=== PATIENT | female | born 1990 | race Caucasian/White ===

== ENCOUNTER 2016-11-19 06:17 | Emergency (ER) | payer OTHER ==
[2016-11-19 06:37] VITALS: BMI 26.4
[2016-11-19] MEDS ORDERED: PANTOPRAZOLE SODIUM 40 MG in SODIUM CHLORIDE 100 ML IVPB ONE (06:48)
[2016-11-19] MEDS ORDERED: SODIUM CHLORIDE 1,000 ML IV STA (06:48)
[2016-11-19] MEDS ORDERED: ONDANSETRON 4 MG/2 ML VIAL IVPUSH ONE (06:48)
[2016-11-19] MEDS ORDERED: ONDANSETRON 4 MG/2 ML VIAL ONE (07:00)
[2016-11-19] MEDS ORDERED: PANTOPRAZOLE SODIUM 100 ML IVPB ONE (07:00)
--- NOTE | 2016-11-19 07:07 | PDOC ---
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 Patient states she is trying to lose weight and drank herbal life tea prior to symptoms onset. Associated dizziness, chest pressure, chest pressure. LNMP: 11-18-16. Patient denies abd pain, diff breathing, fever, rash, hematuria, rectal bleeding, back pain, or any other complaints at this time. Timing/Duration: reports: getting worse Past History - Travel Traveled outside of the country in the last 30 days: No Close contact w/someone who was outside of country & ill: No - Past Medical History Allergies/Adverse Reactions: Allergies Allergy/AdvReac Type Severity Reaction Status Date / Time No Known Allergies Allergy Verified 11/19/16 06:37 Home Medications: Ambulatory Orders Ondansetron HCl [Zofran] 4 mg PO TID PRN #12 tablet 11/19/16 Other medical history: Pt denies - Immunization History Immunization Up to Date: Yes - Psycho/Social/Smoking Cessation Hx Suicidal Ideation: No Smoking History: Never smoked Have you smoked in the past 12 months: No Hx Alcohol Use: No Drug/Substance Use Hx: No Substance Use Type: None Abd/GI Specific PMHX - Complaint Specific PMHX Colitis: No Diverticulitis: No Gall Bladder Disease: No GERD: No Hepatitis: No Irritable Bowel Synd (IBS): No Pancreatitis: No GI Ulcer Disease: No Review of Systems - Review of Systems Able to Perform ROS?: Yes Is the patient limited Martiniquais proficient: No Constitutional: No: Chills, Fever, Malaise Respiratory: No: Cough, Shortness of Breath, Stridor, Wheezing Cardiac (ROS): Yes: Lightheadedness, Chest Tightness. No: Chest Pain, Palpitations, Syncope ABD/GI: Yes: Diarrhea, Nausea, Poor Appetite, Poor Fluid Intake, Vomiting. No: Constipated, Rectal Bleeding, Abdominal cramping : No: Burning, Dysuria, Frequency, Flank Pain, Hematuria, Pain, Urgency Musculoskeletal: No: Back Pain Psychiatric: Yes: Anxiety All Other Systems: Reviewed and Negative *Physical Exam - Vital Signs Last Vital Signs Temp Pulse Resp BP Pulse Ox 98.8 F 93 H 22 124/81 100 11/19/16 06:32 11/19/16 06:32 11/19/16 06:32 11/19/16 06:32 11/19/16 06:32 - Physical Exam General Appearance: Yes: Nourished, Appropriately Dressed, Mild Distress. No: Apparent Distress, Moderate Distress, Severe Distress Neck: positive: Trachea midline, Normal Thyroid, Supple. negative: Lymphadenopathy (R), Lymphadenopathy (L) Respiratory/Chest: positive: Lungs Clear, Normal Breath Sounds. negative: Respiratory Distress, Accessory Muscle Use, Labored Respiration, Rapid RR Cardiovascular: positive: Regular Rhythm, Regular Rate. negative: Edema, JVD, Murmur Gastrointestinal/Abdominal: positive: Soft, Increased Bowel Sounds, Tenderness ( Generalized abdominal tenderness. ). negative: Distended, Guarding, Rebound Musculoskeletal: positive: Normal Inspection. negative: CVA Tenderness Extremity: positive: Normal Capillary Refill, Normal Inspection, Normal Range of Motion Integumentary: positive: Normal Color, Dry, Warm Neurologic: positive: market intelligence consultant II-XII NML intact, Fully Oriented, Alert, Normal Mood/ Affect, Normal Response, Motor Strength 01/13 ED Treatment Course - LABORATORY CBC & Chemistry Diagram: 11/19/16 07:00 11/19/16 07:00 *DC/Admit/Observation/Transfer Diagnosis at time of Disposition: Nausea & vomiting Qualifiers: Vomiting type: unspecified Vomiting Intractability: intractable Qualified Code( s): R11.2 - Nausea with vomiting, unspecified - Discharge Dispostion Disposition: HOME Condition at time of disposition: Improved Admit: No - Prescriptions Prescriptions: Ondansetron HCl [Zofran] 4 mg PO TID PRN #12 tablet PRN Reason: Nausea And/Or Vomiting - Patient Instructions Printed Discharge Instructions: DI for Nausea -- Adult, DI for Vomiting -- Adult Additional Instructions: Stay with clear liquids today and advance to bland foods tomorrow. Use Zofran as needed for nausea. Return to ED if symptoms return or worsen
[2016-11-19 07:08] LABS: BASOPHIL 0.6 % (0-2.0); EOSINOPHIL 0.2 % (0-4.5); MCH 30.9 pg (25.7-33.7); MEAN PLT VOLUME 9.9 fl (7.5-11.1); NEUTROPHILS 71.2 % (42.8-82.8); PLATELET COUNT 260 K/MM3 (134-434); RDW 12.9 % (11.6-15.6); WHITE BLOOD COUNT 8.1 K/mm3 (4.0-10.0)
--- NOTE | 2016-11-19 07:24 | PDOC ---
*Physical Exam - Vital Signs Last Vital Signs Temp Pulse Resp BP Pulse Ox 98.8 F 93 H 22 124/81 100 11/19/16 06:32 11/19/16 06:32 11/19/16 06:32 11/19/16 06:32 11/19/16 06:32 ED Treatment Course - LABORATORY CBC & Chemistry Diagram: 11/19/16 07:00 11/19/16 07:00 - ADDITIONAL ORDERS Additional order review: 11/19/16 07:00 RBC 4.45 MCV 91.0 MCHC 34.0 RDW 12.9 MPV 9.9 Neutrophils % 71.2 Lymphocytes % 22.6 Monocytes % 5.4 Eosinophils % 0.2 Basophils % 0.6 - Medications Given in the ED: ED Medications Discontinued Medications Generic Name Dose Route Start Last Admin Trade Name Lucio PRN Reason Stop Dose Admin Pantoprazole Sodium 40 mg/ 100 mls @ 200 mls/hr 11/19/16 06:48 11/19/16 07:04 Sodium Chloride IVPB 11/19/16 07:17 200 mls/hr ONCE ONE Administration Ondansetron HCl 4 mg 11/19/16 06:48 11/19/16 07:05 Zofran Injection IVPUSH 11/19/16 06:49 4 mg ONCE ONE Administration Medical Decision Making - Medical Decision Making 11/19/16 07:22 Pt received in sign out from MINERVA Amin and c/o n/v and epigastric pain since last night . Pt pending labs 11/19/16 09:09 Laboratory Tests 11/19/16 07:00 Urine Ketones 1+ H Urine Blood 1+ H Ur Leukocyte Esterase Negative Patient states feeling better and wants to go home. Will discharge patient home with Zofran. *DC/Admit/Observation/Transfer Diagnosis at time of Disposition: Nausea and vomiting Qualifiers: Vomiting type: unspecified Vomiting Intractability: intractable Qualified Code( s): R11.2 - Nausea with vomiting, unspecified - Discharge Dispostion Disposition: HOME Condition at time of disposition: Improved - Patient Instructions Printed Discharge Instructions: DI for Vomiting -- Adult, DI for Nausea -- Adult Additional Instructions: Stay with clear liquids today and advance to bland foods tomorrow. Use Zofran as needed for nausea. Return to ED if symptoms return or worsen
[2016-11-19 07:43] LABS: ALBUMIN 4.3 g/dl (3.4-5.0); ALK PHOS 105 U/L (45-117); AMYLASE 55 U/L (25-115); ANION GAP 12 (8-16); BILIRUBIN,TOTAL 0.7 mg/dL (0.2-1.0); CALCIUM 9.5 mg/dL (8.5-10.1); CO2 24 mmol/L (21-32); CREATININE 0.8 mg/dL (0.55-1.02); GLUCOSE,RANDOM 133 mg/dL (74-106); SGOT/AST 15 U/L (15-37); SGPT/ALT 25 U/L (12-78); TOT PROT 7.7 g/dl (6.4-8.2)
[2016-11-19] MEDS ORDERED: KETOROLAC TROMETHAMINE 30 MG/1 ML VIAL IVPUSH ONE (08:19)
[2016-11-19 08:52] LABS: URINE APPEARANCE CLEAR; URINE BILIRUBIN NEGATIVE (NEGATIVE); URINE COLOR COLORLESS; URINE GLUCOSE (UA) NEGATIVE (NEGATIVE); URINE KETONE 1+ (NEGATIVE); URINE LEUK ESTERASE NEGATIVE (NEGATIVE); URINE NITRITE NEGATIVE (NEGATIVE); URINE PROTEIN NEGATIVE (NEGATIVE); URINE UROBILINOGEN NEGATIVE E.U./dl (0.2-1.0)
[2016-11-19 08:56] LABS: URINE BLOOD 1+ (NEGATIVE)
[2016-11-19 09:09] LABS: URINE BACTERIA RARE /hpf (NONE SEEN); URINE MUCUS RARE; URINE RBC 1 /hpf (0-3); URINE WBC 1 /hpf (3-5)
[2016-11-19 09:41] VITALS: BP 111/82; PULSE 71; TEMP 98.4
== END 2016-11-19 09:41 | disposition home or self-care (01) ==
LOC: JER 06:17
DX: R11.2 Nausea with vomiting, unspecified (principal)
CPT/HCPCS: 36415; 80053; 81003; 81015; 82150; 83690; 84703; 85025; 99282-25